=== PATIENT | male | born 1965 | race African-American/Black ===

== ENCOUNTER 2024-06-25 22:46 | Emergency (ER) | payer OTHER, MEDICAID ==
[~2024-06-25] VITALS: Ht 172.7 cm; Wt 114.0 kg
[~2024-06-25 22:46] MED LIST: METF-416 PO
[2024-06-25 22:51] VITALS: TEMP 36.7; O2SAT 100
[2024-06-25] MEDS: DEXTROSE 50% WATER 50ML SYRINGE IV ONE (23:14)
[2024-06-25 23:19] LABS: HEMATOCRIT. 40.7 % (42.0-52.0); HEMOGLOBIN. 13.9 g/dL (14.0-18.0); MEAN CORPUSCULAR HGB CONC 34.1 g/dL (31.0-37.0); MEAN CORPUSCULAR VOLUME 87.8 fL (80.0-94.0); MEAN PLATELET VOLUME 6.7 fl (7.4-10.4); PLATELET 343 x1000/uL (130-400); RED BLOOD CELL COUNT 4.64 mill/uL (4.7-6.1); RED CELL DISTRIBUTION WIDTH 13.2 % (11.6-14.6); WHITE BLOOD COUNT 5.9 x1000/uL (4.5-11.0)
[2024-06-25 23:20] LABS: CHLORIDE 109 mEq/L (98-107); POTASSIUM 2.9 mEq/L (3.5-5.1); SODIUM 144 mEq/L (136-145)
[2024-06-25 23:21] LABS: CALCIUM 8.7 mg/dL (8.7-10.4); CARBON DIOXIDE 27 mEq/L (21-32)
[2024-06-25 23:22] LABS: DIFFERENTIAL COMMENT 1
[2024-06-25 23:26] LABS: CREATININE 1.1 mg/dL (0.6-1.3); GLUCOSE 68 mg/dL (70-105); UREA NITROGEN BLOOD 13 mg/dL (9-23)
[2024-06-25 23:27] LABS: ETHANOL BLOOD < 10 mg/dL (<10); TROPONIN I HIGH SENSITIVITY 5 ng/L (3.0-53)
[2024-06-25 23:38] LABS: PLATELET ESTIMATE NORMAL
[2024-06-25 23:46] LABS: PARTIAL THROMBOPLASTIN TIME 27.1 sec (23.4-31.0); PROTHROMBIN TIME 10.7 sec (9.6-11.0)
[2024-06-26] MEDS: KCL 20MEQ/100ML PREMIX 100 ML IV SCH (01:13)
[2024-06-26 01:16] LABS: CLARITY URINE CLEAR (CLEAR); COLOR URINE YELLOW (YELLOW); GLUCOSE URINE 1+ (NEGATIVE); KETONES URINE TRACE (NEGATIVE); LEUKOCYTE ESTERASE URINE NEGATIVE (NEGATIVE); NITRITE URINE NEGATIVE (NEGATIVE); OCCULT BLOOD URINE 1+ (NEGATIVE); PROTEIN URINE 2+ (NEGATIVE); SPECIFIC GRAVITY URINE 1.018 (1.005-1.030); UROBILINOGEN URINE 0.2 E.U./dL (0.2-1.0)
[2024-06-26 01:20] LABS: *AMPHETAMINES SCREEN URINE NEGATIVE (NEGATIVE); *BARBITURATES SCREEN URINE NEGATIVE (NEGATIVE); *BENZODIAZEPINES SCREEN URINE PRESUMPTIVE POSITIVE (NEGATIVE); *COCAINE SCREEN URINE PRESUMPTIVE POSITIVE (NEGATIVE); METHADONE URINE SCREEN NEGATIVE (NEGATIVE); OPIATES URINE SCREEN NEGATIVE (NEGATIVE)
[2024-06-26 01:21] LABS: CANNABINOID URINE SCREEN NEGATIVE (NEGATIVE); ECSTASY MDMA SCREEN URINE NEGATIVE (NEGATIVE); PHENCYCLIDINE URINE SCREEN NEGATIVE (NEGATIVE)
[2024-06-26] MEDS: HYDRALAZINE 20MG/ML VIAL IV ONE (02:16)
[2024-06-26 02:36] LABS: RBC URINE 0-2 /hpf (0-2); WBC URINE 0-2 /hpf (0-2)
[2024-06-26 02:37] LABS: SQUAMOUS EPITHELIAL CELL URINE NONE SEEN /lpf (RARE/1+)
[2024-06-26 02:38] LABS: BACTERIA URINE NONE SEEN
[2024-06-26 04:13] VITALS: TEMP 98.1
[2024-06-26 05:49] VITALS: BP 144/88; PULSE 88; RESP 13; O2SAT 100
== END 2024-06-26 06:01 | disposition short-term general hospital (02) ==
LOC: ER 22:46
DX: E11.649 Type 2 diabetes mellitus with hypoglycemia without coma (principal); E87.6 Hypokalemia; I10 Essential (primary) hypertension; F14.90 Cocaine use, unspecified, uncomplicated; M19.90 Unspecified osteoarthritis, unspecified site; R56.9 Unspecified convulsions; Z86.73 Personal history of transient ischemic attack (TIA), and cerebral infarction without residual deficits; Z79.899 Other long term (current) drug therapy
CPT/HCPCS: 80048; 80320; 82962 ×2; 83880; 85025; 85610; 85730; 84484; 36415; 71045; 93005; 96365; 96375; 99285; 80305; 81003; 70450; 96367; 96366; J0360; J3480; G0480